=== PATIENT | male | born 1990 | race Caucasian/White ===

== ENCOUNTER → 2020-12-08 01:37 | Outpatient (CLI) | payer BC, SELFPAY ==
[2020-12-08 20:25] LABS: SARS-CoV-2 RNA PCR Negative
== END ==
PROVIDERS: PCP Family Medicine; Visit Provider Physician Assistant
DX: R53.83 Other fatigue (principal); R68.89 Other general symptoms and signs; Z20.822 Contact with and (suspected) exposure to COVID-19
CPT/HCPCS: C9803; U0003; U0005

== ENCOUNTER 2021-01-17 19:34 | Emergency (ER) | payer BC, SELFPAY ==
[2021-01-17 19:38] VITALS: BP 142/88; PULSE 75; RESP 14; TEMP 36.9; O2SAT 100
[2021-01-17 19:56] VITALS: BP 144/81; PULSE 68; RESP 14; TEMP 36.9; O2SAT 99
--- NOTE | 2021-01-17 21:06 | ED.GENADULT ---
HPI - General Adult General Chief complaint: Extremity Injury, Lower Stated complaint: L leg pain Time Seen by Provider: 01/17/21 20:35 Source: patient Mode of arrival: ambulatory Limitations: no limitations History of Present Illness HPI narrative: Patient presents wanting ruled out for DVT due to intermittent aching burning and wet-like sensation to the posterior aspect of his left thigh. Patient has not had any trauma to the area. Patient denies any chronic medical conditions. Patient reports that he called his primary care and was told to present to the emergency department to rule out DVT. Patient not have any pain erythema or swelling to his calves. Patient denies any chest pain, shortness of breath or tachypnea. Patient denies any recent prolonged travel or surgery. He denies history of blood clot. Related Data Home Medications Medication Instructions Recorded Confirmed No Home Medications 01/11/21 01/11/21 Allergies Allergy/AdvReac Type Severity Reaction Status Date / Time Penicillins Allergy Unknown Hives Verified 01/17/21 19:57 Review of Systems Review of Systems: CONSTITUTIONAL: Denies fever, chills, or sweats. EYES: Denies visual changes, redness, or discharge. ENT: Denies rhinorrhea, congestion, sore throat, or otalgia. CARDIOVASCULAR: Denies chest pain, palpitations, or edema. RESPIRATORY: Denies cough or dyspnea. GASTROINTESTINAL: Denies abdominal pain, nausea, vomiting, or diarrhea. GENITOURINARY: Denies dysuria or hematuria. SKIN: Denies rash or itching. MUSCULOSKELETAL: Denies back pain, joint pain, or myalgia. NEUROLOGIC: Reports abnormal sensation denies headache, numbness, dizziness, or weakness. PSYCHIATRIC: Denies anxiety or depression. PMFSH Past Medical History Medical History Pilonidal cyst Social History Social History Smoking status: Never smoker Second hand tobacco smoke exposure: No Alcohol intake: current Drinks per week: 3 Substance use: never Substance use type: does not use Gender identity (if verbalized by the patient): Male Exam Narrative: GENERAL: Well-appearing, well-nourished, and in no acute distress. HEAD: Normocephalic, atraumatic. EYES: PERRLA and EOMI. CHEST: Clear to auscultation. No respiratory distress. No wheezes rales or rhonchi HEART: Regular rate and rhythm. No murmur heard. Normal peripheral pulses. ABDOMEN: Soft, nontender, nondistended, normal active bowel sounds. EXTREMITIES: Normal range of motion. No edema. No erythema, swelling, tightness or induration noted to patient's calf. Patient does have varicose veins noted. There is no abnormalities noted to patient's lower extremities that could attribute the patient symptoms. SKIN: Warm, dry, no rash. NEURO: No focal deficits. Alert and oriented x3. PSYCH: Normal mood and affect. Course Vital Signs Vital signs: Vital Signs Temperature 98.5 F 01/17/21 19:38 Pulse Rate 75 01/17/21 19:38 Respiratory Rate 14 01/17/21 19:38 Blood Pressure 142/88 H 01/17/21 19:38 Pulse Oximetry 100 01/17/21 19:38 Temperature 98.5 F 01/17/21 19:56 Pulse Rate 68 01/17/21 19:56 Respiratory Rate 14 01/17/21 19:56 Blood Pressure 144/81 H 01/17/21 19:56 Pulse Oximetry 99 01/17/21 19:56 Medical Decision Making MDM Narrative Medical decision making narrative: Patient reports that he was told to come to the emergency department to have test to rule out DVT. Patient does not have signs of DVT. It is likely the patient needs to follow-up with his primary care for further investigation into other neurologic disorders that could be the cause of his symptoms. Patient does not show any signs of stroke or trauma. Vital Signs Vital Signs: Vital Signs Temperature 98.5 F 01/17/21 19:38 Pulse Rate 75 01/17/21 19:38 Respiratory Rate 14 01/17/21 19:38 Bl
[2021-01-17 21:19] LABS: D Dimer 0.27 ug/mL (<0.48)
[2021-01-17 22:15] VITALS: BP 124/74; PULSE 74; RESP 16; O2SAT 99
== END 2021-01-17 22:15 | disposition home or self-care (01) ==
PROVIDERS: Emergency Provider Emergency Medicine; PCP Family Medicine
DX: R23.9 Unspecified skin changes (principal)
CPT/HCPCS: 36415; 85380; 99283

== ENCOUNTER 2021-02-03 09:36 | Outpatient (CLI) | payer BC, SELFPAY ==
--- NOTE | ~2021-02-03 | US_ITS ---
EXAMINATION: US soft tissue LE LT EXAM DATE: 02/03/2021 10:16 INDICATION: Pain left posterior thigh . TECHNIQUE: Multiple grayscale and Doppler images of the left lower extremity soft tissue were obtaine d (by a technologist who performed the scan) and subsequently reviewed. Correlation is made to left l ower extremity Doppler earlier same date. FINDINGS: Scanning left posterior thigh area of clinical concern demonstrated unremarkable subcutaneous fat and underlying musculature. No abscess or mass identified in this location. IMPRESSION: 1. Unremarkable targeted left thigh soft tissue ultrasound exam. Reviewed, dictated and finalized at location A.
--- NOTE | ~2021-02-03 | US_ITS ---
EXAMINATION:US venous doppler LE LT INDICATION:Left leg pain TECHNIQUE: Multiple grayscale, color flow and Doppler images of the left lower extremity deep venous systems were obtained and reviewed. COMPARISON:No prior studies for comparison. FINDINGS: The common femoral, superficial femoral and popliteal veins demonstrate normal respiratory variation, augmentation and compressibility. Color flow is also seen within the posterior tibial, pe roneal, greater saphenous and profunda veins. IMPRESSION: 1: No lower extremity deep venous thrombosis. Reviewed, dictated and finalized at location A.
== END 2021-02-03 09:37 | disposition home or self-care (01) ==
LOC: ANHIMG 09:40
PROVIDERS: PCP Family Medicine; Visit Provider Nurse Practitioner Family
DX: M79.652 Pain in left thigh (principal)
CPT/HCPCS: 76882; 93971